=== PATIENT | female | born 1975 | race Asian ===

== ENCOUNTER 2017-03-30 08:09 | Inpatient (IN) | payer OTHER ==
[2017-03-30] MEDS ORDERED: Sodium Citrate/Citric Acid* 15 ML UDC PO ONE (09:35)
[2017-03-30] MEDS ORDERED: Morphine PF AMP (0.5MG/ML)* 5 MG/10 ML AMP ONE (10:44)
[2017-03-30] MEDS ORDERED: ceFOXitin 2 GM IVPREMIX* 2 GM/50 ML BAG IVPB ONE (11:00)
[2017-03-30] MEDS ORDERED: Phenylephrine IV* 40 MCG/ML 10 ML SYRINGE ONE (11:06)
[2017-03-30] MEDS ORDERED: oxyCODONE/Acetamin 5/325 MG* TAB PO PRN (11:29)
[2017-03-30] MEDS ORDERED: DiMENhydriNATE IV* 50 MG/ML VIAL IV PUSH PRN (11:29)
[2017-03-30] MEDS ORDERED: Naloxone* 0.4 MG/ML 1 ML VIAL IV PRN (11:29)
[2017-03-30] MEDS ORDERED: fentaNYL* 50 MCG/ML 2 ML VIAL (100 MCG VIAL) IV PRN (11:29)
[2017-03-30] MEDS ORDERED: diPHENhydraMINE IV* 50 MG/ML 1 ml VIAL (BENADRYL) IV PRN ×2 (11:29)
[2017-03-30] MEDS ORDERED: Nalbuphine* 20 MG/ML 1 ML VIAL IV PRN ×2 (11:29)
[2017-03-30] MEDS ORDERED: oxyCODONE TAB* 5 MG TAB PO PRN (11:29)
[2017-03-30] MEDS ORDERED: Ondansetron INJ* 2 MG/ML VIAL IV PRN ×2 (11:29)
[2017-03-30] MEDS ORDERED: Naloxone* 2 MG in NS 0.9% 250 ML* 250 ML IV PRN (11:29)
[2017-03-30] MEDS ORDERED: Witch Hazel PAD* JAR TOPICAL PRN (12:38)
[2017-03-30] MEDS ORDERED: Acetaminophen TAB* 325 MG PO PRN (12:38)
[2017-03-30] MEDS ORDERED: Glycerin ADULT SUPP PR PRN (12:38)
[2017-03-30] MEDS ORDERED: Dibucaine 1% 28.35 GM TUBE PR PRN (12:38)
[2017-03-30] MEDS ORDERED: Oxytocin in LR* 20 UNITS/1,000 ML BAG IVPB SCH (13:00)
[2017-03-30] MEDS: Ketorolac INJ* 30 MG/ML 1 ML VIAL IV PRN ×2 (13:20→21:25)
[2017-03-30] MEDS: Simethicone CHEW TAB* 80 MG PO SCH ×2 (17:26→21:25)
[2017-03-30] MEDS: Docusate CAP* 100 MG PO SCH ×2 (17:26→21:25)
--- NOTE | 2017-03-31 01:17 | OP ---
DATE OF OPERATION: 03/30/17 - ROOM #115 DATE OF : 79 SURGEON: Radha Isaacs MD [facility] AGENT: Petra Slaughter MD ANESTHESIOLOGIST: Shawn Brannon MD ANESTHESIA: Spinal PRE-OP DIAGNOSIS: Intrauterine at 39 plus weeks, desires repeat section. POST-OP DIAGNOSIS: Intrauterine at 39 plus weeks, desires repeat section, delivered. OPERATIVE PROCEDURE: Repeat low transverse section with a failed attempt of vacuum extraction. ESTIMATED BLOOD LOSS: 600 cc. URINE OUTPUT: 100 cc of yellow urine. FLUIDS: 1800 cc of crystalloid. FINDINGS: Revealed a LOT vertex male infant with Apgars 9 at 1 minutes and 9 at 5 minutes, weight 7 pounds 1 ounce. Nuchal cord x1. No meconium. Placenta. Three- vessel cord manually extracted intact. COMPLICATIONS: None apparent. DISPOSITION: Stable to recovery room. DESCRIPTION OF PROCEDURE: The patient was placed in the dorsal lithotomy position. Abdomen was prepped and draped in the sterile standard fashion. The patient was identified using universal protocol for correct procedure, patient position. After anesthesia level was confirmed, an incision was made 2 fingerbreadths above the pubic symphysis. This was carried down to the fascia. Fascia was scored in the midline, extended laterally and superiorly using curved Morse scissors. The peritoneum was then entered bluntly. The peritoneal incision was extended manually and Linus retractor was then inserted in a standard fashion. Allis was used to tent up on the lower uterine segment. An incision was made with scalpel, carried down to membranes. The incision was extended laterally and superiorly using bandage scissors. Amniotomy was created to clear fluid. Attempt was made to delivery of the head, then a vacuum was attempted without failed suction, a second vacuum was applied with failed suction. The Linus was then removed. The incision was extended and head delivered spontaneously at that point in time. The cord was doubly clamped. The was vigorous, handed off to awaiting automobile drivers. Appropriate cord blood was obtained. Placenta was then manually extracted. Noted to be three-vessel cord intact. The uterine cavity was wiped clean and noted to be free of any membranes. The uterine incision itself was then reapproximated with first layer running locked, second layer running imbricated. There was a small area of [id number] was required in the midline for complete hemostasis of the hysterotomy site. Normal tubes and ovaries were appreciated. Uterus was returned intraabdominally. There was no evidence of adhesions from prior surgery. Colic gutters were lavaged. Hemostasis was assured at the hysterotomy site. The peritoneum was reapproximated using 3-0 Vicryl in a running fashion. The subfascial area was visualized, hemostasis assured and the fascia itself was reapproximated with 0 Vicryl x2 in a running fashion. The subcu was lavaged. Hemostasis assured with Bovie coagulation. The skin was then reapproximated with 4- 0 Monocryl in a subcuticular fashion. Mastisol and Steri-Strips were applied. All sponge, instruments, and blade counts were correct throughout the case. The patient tolerated the procedure well and went to recovery room in stable condition. [id number] #: [id number]
[2017-03-31] MEDS ORDERED: oxyCODONE/Acetamin 5/325 MG* TAB PO PRN (03:30)
[2017-03-31] MEDS: Ketorolac INJ* 30 MG/ML 1 ML VIAL IV PRN ×2 (04:36→10:26)
[2017-03-31] MEDS: oxyCODONE/Acetamin 5/325 MG* TAB PO PRN ×4 (04:37→20:54)
[2017-03-31 09:53] LABS: Hematocrit 27 % (35-47); Mean Corpuscular HGB Conc 30 g/dl (31-36); Mean Corpuscular Hemoglobin 22 pg (27-31); Mean Platelet Volume 8 um3 (7.4-10.4); Red Blood Count 3.64 10^6/ul (4.0-5.4); Red Cell Distribution Width 21 % (10.5-15); White Blood Count 11.6 10^3/ul (3.5-10.8)
[2017-03-31 09:54] LABS: Comments Flag Yes; Mean Corpuscular Volume 73 fL (80-97)
[2017-03-31] MEDS: Simethicone CHEW TAB* 80 MG PO SCH ×4 (10:35→20:54)
[2017-03-31] MEDS: Ferrous Gluconate TAB* 324 MG TAB PO SCH ×2 (10:35→20:53)
[2017-03-31] MEDS: Docusate CAP* 100 MG PO SCH ×3 (10:35→20:54)
[2017-03-31] MEDS: Ibuprofen TAB* 600 MG PO PRN ×2 (10:53→18:05)
[2017-04-01] MEDS: Ibuprofen TAB* 600 MG PO PRN ×3 (05:17→17:46)
[2017-04-01] MEDS: oxyCODONE/Acetamin 5/325 MG* TAB PO PRN ×3 (05:17→17:46)
[2017-04-01] MEDS: Ferrous Gluconate TAB* 324 MG TAB PO SCH ×2 (08:48→20:09)
[2017-04-01] MEDS: Simethicone CHEW TAB* 80 MG PO SCH ×4 (08:48→20:09)
[2017-04-01] MEDS: Docusate CAP* 100 MG PO SCH ×3 (08:48→20:09)
--- NOTE | 2017-04-01 19:59 | PTEDU ---
Patient Name: ROBERT TOVAR GUY JACINTOShakira selected video: Never Ever Shake a Baby to view on 04/01/2017 at 7:58:52 PM from [id number]
[2017-04-02] MEDS: Ibuprofen TAB* 600 MG PO PRN ×2 (04:01→12:18)
[2017-04-02] MEDS: oxyCODONE/Acetamin 5/325 MG* TAB PO PRN ×2 (04:01→08:03)
[2017-04-02 07:56] VITALS: BP 137/81
[2017-04-02] MEDS: Docusate CAP* 100 MG PO SCH (08:03)
[2017-04-02] MEDS: Simethicone CHEW TAB* 80 MG PO SCH ×2 (08:03→12:18)
[2017-04-02] MEDS: Ferrous Gluconate TAB* 324 MG TAB PO SCH (08:03)
[2017-04-02] MEDS ORDERED: Tetan/Diph/Pertus SYR(Tdap)* 0.5 ML SYR(BOOSTRIX) use SYR IM ONE (11:38)
== END 2017-04-02 13:13 | disposition home or self-care (01) | DRG 540 ==
LOC: MCHOB 08:09
PROVIDERS: ADMIT Obstetrics & Gynecology; ATTEND Obstetrics & Gynecology
PROC: 10D00Z1 Extraction of Products of Conception, Low, Open Approach (ICD-10-PCS; principal; 2017-03-30 10:00)
DX: O34.211 Maternal care for low transverse scar from previous cesarean delivery (principal); O24.420 Gestational diabetes mellitus in childbirth, diet controlled; D64.9 Anemia, unspecified; O99.824 Streptococcus B carrier state complicating childbirth; O69.81X0 Labor and delivery complicated by cord around neck, without compression, not applicable or unspecified; O90.81 Anemia of the puerperium; Z3A.39 39 weeks gestation of pregnancy; Z37.0 Single live birth
CPT/HCPCS: 36415; 85025; 90715; A9270-GY; J0694; J1885